=== PATIENT | male | born 1960 | race Caucasian/White ===

== ENCOUNTER → 2017-05-30 | Outpatient (REF) ==
--- NOTE | 2017-05-30 16:48 | REP ---
Lumbar spine series: Three views. History: Degenerative disc disease. No comparison study. Findings: Lumbar vertebral body heights are preserved. Alignment is normal. Pedicles and posterior elements are intact. There is no evidence of spondylolysis or spondylolisthesis. There is degenerative disc disease at each lumbar level. This is most pronounced at L2-3, L3-4 and L4-5. Discogenic spurring is seen at these levels. There is osteoarthritic facet hypertrophy bilaterally at L5-S1 and at L4-5. Sacrum and SI joints are intact. Psoas margins are symmetric. There is a mild dextroconvex curve in the upper lumbar spine on the AP radiograph. Impression: Degenerative spondylosis changes as above. Signed by Quinton Alfaro MD 05/30/2017 06:41 P
== END ==
LOC: M SMT 14:14
PROVIDERS: ATTEND Internal Medicine
DX: Z02.9 Encounter for administrative examinations, unspecified (principal)

== ENCOUNTER → 2018-03-19 | Outpatient (REF) | LOC: M SMT 14:27 | DX: M47.817 Spondylosis without myelopathy or radiculopathy, lumbosacral region (principal) ==

== ENCOUNTER → 2023-04-23 | Outpatient (REF) | payer OTHER | LOC: M SFHCDERM 16:43 | PROVIDERS: ATTEND Nurse Practitioner Family | DX: C44.311 Basal cell carcinoma of skin of nose (principal) ==